=== PATIENT | male | born 1975 | race American Indian/Alaskan Native ===

== ENCOUNTER 2017-11-14 15:59 | Outpatient (CLI) | payer BC ==
--- NOTE | 2017-11-14 18:41 | XRay Report ---
FINAL REPORT EXAM: XR SPINE THORACIC 3V HISTORY: T SPINE PAIN TECHNIQUE: 3 views thoracic spine PRIORS: None. FINDINGS: The vertebral bodies demonstrate normal height and alignment. The disk spaces are within normal limits. The posterior elements appear intact. Perivertebral soft tissues are unremarkable. IMPRESSION: Negative thoracic spine series
--- NOTE | 2017-11-14 18:41 | XRay Report ---
FINAL REPORT EXAM: XR SPINE LUMBOSACRAL 4+V HISTORY: L PAIN TECHNIQUE: Lumbar spine 4 views PRIORS: None. FINDINGS: Vertebral bodies demonstrate normal height and alignment. The disc spaces are within normal limits. There is no evidence of spondylolisthesis. Transverse and spinous processes are intact SI joints are unremarkable. IMPRESSION: Negative lumbar spine series
== END 2017-11-14 16:00 | disposition home or self-care (01) ==
LOC: XRAY 15:59
PROVIDERS: ATTEND Physician Assistant
DX: M54.5 Low back pain (principal); M54.6 Pain in thoracic spine
CPT/HCPCS: 72072; 72110

== ENCOUNTER 2021-06-09 08:10 | Emergency (ER) | payer SELFPAY ==
[2021-06-09] MEDS ORDERED: ONDANSETRON 4 MG ODT TAB PO ONE (08:43)
[2021-06-09] MEDS ORDERED: LIDOCAINE (1%) 10 MG/1 ML VIAL 20 ML MDV INFILTRATI ONE (08:44)
[2021-06-09] MEDS ORDERED: ALUM-MAG HYDROXIDE-SIMETHICONE 200-200-20MG/5ML ORAL LIQD 30 ML PO ONE (08:44)
[2021-06-09] MEDS ORDERED: FAMOTIDINE 20 MG TAB PO ONE (08:44)
[2021-06-09] MEDS ORDERED: DICYCLOMINE 10 MG/5 ML ORAL LIQD PO ONE (08:44)
--- NOTE | 2021-06-09 08:45 | Emergency Department Report ---
ED General Adult HPI - General Chief complaint: Back Pain/Injury Stated complaint: lower back pain Time Seen by Provider: 06/09/21 08:25 Source: patient Mode of arrival: Ambulatory Limitations: No Limitations - History of Present Illness Initial comments: 45-year-old -[place] male patient presents with complaints of right sided back pain and right sided abdominal pain starting this morning. Patient states he had a headache last night and took a Goody's powder on an empty stomach. He states when he awoke he started having abdominal pain and flank pain. He denies any urinary symptoms. Patient states he vomited and is feeling nauseous. No hematemesis/coffee-ground emesis, melena/hematochezia, fever/chills/sweats, cough, shortness of breath, or chest pain per patient. No other past medical history per patient. He rates his pain as a 8/10 in severity and describes it as a deep ache/cramping type pain. Severity scale (0 -10): 10 - Related Data Previous Rx's Medication Instructions Recorded Last Taken Type Acetaminophen/Codeine [Tylenol 1 tab PO Q6H PRN #15 tab 06/09/21 Unknown Rx /Codeine # 3 tab] Naproxen 500 mg PO 20 PRN #20 tablet 06/09/21 Unknown Rx Ondansetron [Zofran Odt] 4 mg PO Q8HR PRN #15 tab.rapdis 06/09/21 Unknown Rx Tamsulosin [Flomax] 0.4 mg PO QDAY #5 cap 06/09/21 Unknown Rx Allergies Allergy/AdvReac Type Severity Reaction Status Date / Time No Known Allergies Allergy Verified 06/09/21 08:11 ED Review of Systems ROS: Stated complaint: lower back pain Other details as noted in HPI Constitutional: denies: chills, fever, malaise Respiratory: denies: cough, shortness of breath Cardiovascular: denies: chest pain Gastrointestinal: abdominal pain, nausea, vomiting. denies: diarrhea, constipation, hematemesis, melena, hematochezia Genitourinary: denies: urgency, dysuria, frequency, hematuria, testicular pain Skin: denies: rash, change in color Neurological: denies: headache ED Past Medical Hx - Past Medical History Previous Medical History?: No - Surgical History Past Surgical History?: No - Medications Home Medications: Home Medications Medication Instructions Recorded Confirmed Last Taken Type Acetaminophen/Codeine [Tylenol 1 tab PO Q6H PRN #15 tab 06/09/21 Unknown Rx /Codeine # 3 tab] Naproxen 500 mg PO 20 PRN #20 tablet 06/09/21 Unknown Rx Ondansetron [Zofran Odt] 4 mg PO Q8HR PRN #15 tab.rapdis 06/09/21 Unknown Rx Tamsulosin [Flomax] 0.4 mg PO QDAY #5 cap 06/09/21 Unknown Rx ED Physical Exam - General Limitations: No Limitations General appearance: alert, in no apparent distress - Head Head exam: Present: atraumatic, normocephalic - Eye Eye exam: Present: normal appearance. Absent: scleral icterus - Respiratory Respiratory exam: Present: normal lung sounds bilaterally. Absent: respiratory distress - Cardiovascular Cardiovascular Exam: Present: regular rate, normal rhythm - GI/Abdominal GI/Abdominal exam: Present: soft, tenderness (Epigastric/right upper quadrant, mild), normal bowel sounds. Absent: distended, guarding, rebound, rigid - Extremities Exam Extremities exam: Present: full ROM - Back Exam Back exam: Present: full ROM. Absent: CVA tenderness (R), CVA tenderness (L), paraspinal tenderness, vertebral tenderness - Neurological Exam Neurological exam: Present: alert, oriented X3 - Psychiatric Psychiatric exam: Present: normal affect, normal mood - Skin Skin exam: Present: warm, dry, intact, normal color. Absent: rash ED Course Vital Signs 06/09/21 06/09/21 08:14 12:43 Temperature 98.9 F Pulse Rate 65 60 Respiratory 16 18 Rate Blood Pressure 110/54 106/51 [Right] O2 Sat by Pulse 100 98 Oximetry ED Medical Decision Making - Lab Data Result diagrams: 06/09/21 10:01 06/09/21 10:01 Lab Results 06/09/21 06/09/21 06/09/21 Range/Units 08:53 10:01 10:01 WBC 4.5 (4.5-11.0) K/mm3 RBC 5.18 H (3.65-5.03) M/mm3 Hgb 15.5 H (11.8-15.2) gm/dl Hct 46.3 H (35.5-45.6) % MCV 89 (84-94) fl MCH 30 (28-32) pg MCHC 33 (32-34) % RDW 13.3 (13.2-15.2) % Plt Count 171 (140-440) K/mm3 Lymph % (Auto) 15.9 (13.4-35.0) % Maury % (Auto) 6.1 (0.0-7.3) % Eos % (Auto) 0.7 (0.0-4.3) % Baso % (Auto) 0.6 (0.0-1.8) % Lymph # (Auto) 0.7 L (1.2-5.4) K/mm3 Maury # (Auto) 0.3 (0.0-0.8) K/mm3 Eos # (Auto) 0.0 (0.0-0.4) K/mm3 Baso # (Auto) 0.0 (0.0-0.1) K/mm3 Seg Neutrophils % 76.7 H (40.0-70.0) % Seg Neutrophils # 3.4 (1.8-7.7) K/mm3 Sodium 141 (137-145) mmol/L Potassium 3.9 (3.6-5.0) mmol/L Chloride 104.0 (98-107) mmol/L Carbon Dioxide 25 (22-30) mmol/L Anion Gap 16 mmol/L BUN 14 (9-20) mg/dL Creatinine 0.8 (0.8-1.3) mg/dL Estimated GFR > 60 ml/min BUN/Creatinine Ratio 18 % Glucose 97 (75-100) mg/dL Calcium 9.2 (8.4-10.2) mg/dL Total Bilirubin 1.00 (0.1-1.2) mg/dL AST 20 (5-40) units/L ALT 21 (7-56) units/L Alkaline Phosphatase 42 (35-129) units/L Total Protein 7.4 (6.3-8.2) g/dL Albumin 4.6 (3.9-5) g/dL Albumin/Globulin Ratio 1.6 % Lipase 37 (13-60) units/L Urine Color Red (Yellow) Urine Turbidity Cloudy (Clear) Urine pH 6.0 (5.0-7.0) Ur Specific Conception 1.021 (1.003-1.030) Urine Protein 100 mg/dl (Negative) mg/dL Urine Glucose (UA) Neg (Negative) mg/dL Urine Ketones Neg (Negative) mg/dL Urine Blood Lg (Negative) Urine Nitrite Neg (Negative) Urine Bilirubin Neg (Negative) Urine Urobilinogen < 2.0 (<2.0) mg/dL Ur Leukocyte Esterase Neg (Negative) Urine WBC (Auto) 2.0 (0.0-6.0) /HPF Urine RBC (Auto) > 182.0 (0.0-6.0) /HPF Urine Mucus 3+ /HPF - Radiology Data Radiology results: report reviewed CT ABDOMEN AND PELVIS WITH CONTRAST INDICATION / CLINICAL INFORMATION: R flank/RUQ pain, gross hematuria, 100ml of omnipaque 300 given. TECHNIQUE: Axial CT images were obtained through the abdomen and pelvis after 100 cc of Omnipaque [address] scans at this location are performed using CT dose reduction for ALARA by means of automated exposure control. COMPARISON: None available. FINDINGS: LOWER CHEST: No significant abnormality. LIVER: No significant abnormality. GALLBLADDER: No significant abnormality. BILE DUCTS: No significant abnormality. PANCREAS: No significant abnormality. SPLEEN: No significant abnormality. ADRENALS: No significant abnormality. RIGHT KIDNEY / URETER: There is a 4 mm mid right ureteral stone with slight dilatation of the renal collecting system proximal to it. LEFT KIDNEY / URETER: No significant abnormality. STOMACH / SMALL BOWEL: No significant abnormality. COLON: No significant abnormality. APPENDIX: No significant abnormality. PERITONEUM: No free fluid. No free air. No fluid collection. LYMPH NODES: No significant adenopathy. AORTA / ARTERIES: No significant abnormality. IVC / VEINS: No significant abnormality. URINARY BLADDER: No significant abnormality. REPRODUCTIVE ORGANS: No significant abnormality. ADDITIONAL FINDINGS: None. SKELETAL SYSTEM: No significant abnormality. IMPRESSION: 1. There is a 4 mm stone in the mid right ureter at the level of L3-4. There is slight dilatation of the right renal collecting system proximal to this stone. 2. There is no bowel obstruction, inflammation, or free air. There are no abnormal fluid collections. - Medical Decision Making 45-year-old -[place] male patient presents with complaints of right sided back pain and right sided abdominal pain starting this morning. Patient states he had a headache last night and took a Goody's powder on an empty stomach. He states when he awoke he started having abdominal pain and flank pain. He denies any urinary symptoms. Patient states he vomited and is feeling nauseous. No hematemesis/coffee-ground emesis, melena/hematochezia, fever/chills/sweats, cough, shortness of breath, or chest pain per patient. No other past medical history per patient. He rates his pain as a 8/10 in severity and describes it as a deep ache/cramping type pain. 1750: urine sample noted to have gross hematuria. Labs ordered. Patient denies history of kidney stones CT abdomen shows 4 mm right ureteral stone without hydronephrosis. Kidney function remains normal. Patient's pain is well controlled. UA is negative for any infection. Vitals are within normal limits. Discussed findings, care plan, and importance of follow-up with urology with patient. Also discussed signs and symptoms that should prompt immediate return to the ED. Patient verbalizes understanding. He is well-appearing and stable for discharge home. Critical care attestation.: If time is entered above; I have spent that time in minutes in the direct care of this critically ill patient, excluding procedure time. ED Disposition Clinical Impression: Right kidney stone Disposition: HOME / SELF CARE / HOMELESS Is pt being admited?: No Condition: Stable Instructions: Low-Purine Eating Plan, Kidney Stones, Apti-on-Plwe Prescriptions: Tamsulosin [Flomax] 0.4 mg PO QDAY #5 cap Naproxen 500 mg PO 20 PRN #20 tablet PRN Reason: pain Acetaminophen/Codeine [Tylenol /Codeine # 3 tab] 1 tab PO Q6H PRN #15 tab PRN Reason: Pain , Severe (7-10) Ondansetron [Zofran Odt] 4 mg PO Q8HR PRN #15 tab.rapdis PRN Reason: Nausea Referrals: NIC IQBAL MD [Staff Physician] - 2-3 Days Forms: Work/School Release Form(ED)
[2021-06-09] MEDS ORDERED: MORPHINE 4 MG/1 ML INJ IV ONE (08:54)
[2021-06-09] MEDS ORDERED: FAMOTIDINE 20 MG/2 ML INJ IV ONE (08:54)
[2021-06-09] MEDS ORDERED: MORPHINE 2 MG/1 ML INJ ONE (09:15)
[2021-06-09 10:48] LABS: Basophils % (Auto) 0.6 % (0.0-1.8); Eosinophils % (Auto) 0.7 % (0.0-4.3); Hematocrit 46.3 % (35.5-45.6); Hemoglobin 15.5 gm/dl (11.8-15.2); Lymphocytes # (Auto) 0.7 K/mm3 (1.2-5.4); Lymphocytes % (Auto) 15.9 % (13.4-35.0); Mean Corpuscular HGB Conc 33 % (32-34); Mean Corpuscular Volume 89 fl (84-94); Monocytes # (Auto) 0.3 K/mm3 (0.0-0.8); Monocytes % (Auto) 6.1 % (0.0-7.3); Platelet Count 171 K/mm3 (140-440); Red Blood Count 5.18 M/mm3 (3.65-5.03); Red Cell Distribution Width 13.3 % (13.2-15.2)
[2021-06-09 10:57] LABS: Alanine Aminotransferase 21 units/L (7-56); Albumin 4.6 g/dL (3.9-5); BUN/Creatinine Ratio 18; Blood Urea Nitrogen 14 mg/dL (9-20); Calcium 9.2 mg/dL (8.4-10.2); Hemolysis Index 20
[2021-06-09 11:24] LABS: Bilirubin,Urine NEG (Negative); Blood,Urine LG (Negative); Color,Urine Red (Yellow); Mucus,Urine 3+ /HPF; Urobilinogen,Urine < 2.0 mg/dL (<2.0)
[2021-06-09 11:25] LABS: RBC,Urine > 182.0 /HPF (0.0-6.0)
--- NOTE | 2021-06-09 12:22 | Cat Scan Report ---
CT ABDOMEN AND PELVIS WITH CONTRAST INDICATION / CLINICAL INFORMATION: R flank/RUQ pain, gross hematuria, 100ml of omnipaque 300 given. TECHNIQUE: Axial CT images were obtained through the abdomen and pelvis after 100 cc of Omnipaque [address] scans at this location are performed using CT dose reduction for ALARA by means of automated exposure control. COMPARISON: None available. FINDINGS: LOWER CHEST: No significant abnormality. LIVER: No significant abnormality. GALLBLADDER: No significant abnormality. BILE DUCTS: No significant abnormality. PANCREAS: No significant abnormality. SPLEEN: No significant abnormality. ADRENALS: No significant abnormality. RIGHT KIDNEY / URETER: There is a 4 mm mid right ureteral stone with slight dilatation of the renal c ollecting system proximal to it. LEFT KIDNEY / URETER: No significant abnormality. STOMACH / SMALL BOWEL: No significant abnormality. COLON: No significant abnormality. APPENDIX: No significant abnormality. PERITONEUM: No free fluid. No free air. No fluid collection. LYMPH NODES: No significant adenopathy. AORTA / ARTERIES: No significant abnormality. IVC / VEINS: No significant abnormality. URINARY BLADDER: No significant abnormality. REPRODUCTIVE ORGANS: No significant abnormality. ADDITIONAL FINDINGS: None. SKELETAL SYSTEM: No significant abnormality. IMPRESSION: 1. There is a 4 mm stone in the mid right ureter at the level of L3-4. There is slight dilatation of the right renal collecting system proximal to this stone. 2. There is no bowel obstruction, inflammation, or free air. There are no abnormal fluid collections. Signer Name: Omar Norton MD Signed: 06/09/2021 12:18 PM Workstation Name: [id number]
[2021-06-09] MEDS ORDERED: KETOROLAC 30 MG/1 ML INJ IV ONE (12:26)
[2021-06-09 12:44] VITALS: BP 106/51
== END 2021-06-09 12:49 | disposition home or self-care (01) ==
LOC: ED 08:10
DX: N20.0 Calculus of kidney (principal)
CPT/HCPCS: 36415; 74177; 80053; 81001; 83690; 85025; 96374; 96375; 99284; J1885; J2270; Q9967; Q0162